=== PATIENT | male | born 1980 | race American Indian/Alaskan Native ===

== ENCOUNTER 2019-09-06 06:51 | Emergency (ER) | payer SELFPAY ==
[2019-09-06 06:58] VITALS: BP 142/94
--- NOTE | 2019-09-06 10:08 | Emergency Department Report ---
ED Lower Extremity HPI - General Chief Complaint: Fever Stated Complaint: FEVER LT LEG SWELLING Time Seen by Provider: 09/06/19 09:53 Source: patient Mode of arrival: Ambulatory Limitations: No Limitations - History of Present Illness Initial Comments: Mr. Michael is a 39-year-old -[place] male who comes to the ER today complaining of left knee pain. He states that after working out yesterday his knee began to swell. He states that during some stretching he felt a popping. He then endorses later in the night waking up with pain and what he said was chills. Patient is afebrile on exam. On provider exam his heart rate is 90. He does have an effusion to his left knee. Patient was ambulatory to the emergency room. He denies any other injury. - Related Data Allergies Allergy/AdvReac Type Severity Reaction Status Date / Time Penicillins Allergy Unknown Verified 09/06/19 06:53 ED Review of Systems ROS: Stated complaint: FEVER LT LEG SWELLING Other details as noted in HPI Comment: All other systems reviewed and negative ED Past Medical Hx - Past Medical History Previous Medical History?: No - Surgical History Past Surgical History?: Yes Additional Surgical History: right achilles - Family History Family history: no significant - Social History Smoking Status: Never Smoker Substance Use Type: Alcohol ED Physical Exam - General Limitations: No Limitations General appearance: alert, in no apparent distress - Head Head exam: Present: atraumatic, normocephalic - Eye Eye exam: Present: normal appearance - ENT ENT exam: Present: mucous membranes moist - Neck Neck exam: Present: normal inspection - Respiratory Respiratory exam: Present: normal lung sounds bilaterally. Absent: respiratory distress - Cardiovascular Cardiovascular Exam: Present: regular rate, normal rhythm. Absent: systolic murmur, diastolic murmur, rubs, gallop - GI/Abdominal GI/Abdominal exam: Present: soft, normal bowel sounds - Rectal Rectal exam: Present: deferred - Extremities Exam Extremities exam: Present: normal inspection - Expanded Lower Extremity Exam Left Hip exam: Present: normal inspection Upper Leg exam: Present: normal inspection Knee exam: Present: tenderness, swelling, effusion, full knee extension. Absent: abrasion, laceration, ecchymosis, deformity, crepidus, dislocation, erythema, pain w/ pronation/supination, posterior draw sign, pain/laxity with valgus, pain/laxity with varus Lower Leg exam: Present: normal inspection - Back Exam Back exam: Present: normal inspection - Neurological Exam Neurological exam: Present: alert, oriented X3 - Psychiatric Psychiatric exam: Present: normal affect, normal mood - Skin Skin exam: Present: warm, dry, intact, normal color. Absent: rash ED Course Vital Signs 09/06/19 06:56 Temperature 98.8 F Pulse Rate 105 H Respiratory 16 Rate Blood Pressure 142/94 O2 Sat by Pulse 98 Oximetry ED Lower Extremity MDM - Radiology Data Radiology results: report reviewed, image reviewed - Medical Decision Making MEDIAL SUPERIOR EFFUSION OF KNEE ON EXAM NO TENDERNESS OVER MENISCUS DISTAL PULSES PLUS 2 XRAY NOTED KNEE IMMOB/CRUTCHES DC HOME WITH ORTHO FOLLOW UP TO BE SURE EFFUSION RESOLVED PT VERBALIZES UNDERSTANDING OF PLAN OF CARE Vital Signs 09/06/19 06:56 Temperature 98.8 F Pulse Rate 105 H Respiratory 16 Rate Blood Pressure 142/94 O2 Sat by Pulse 98 Oximetry - Differential Diagnosis KNEE EFFUSION RO MENISCUS INJURY Critical care attestation.: If time is entered above; I have spent that time in minutes in the direct care of this critically ill patient, excluding procedure time. ED Disposition Clinical Impression: Knee effusion, left Disposition: DC-01 TO HOME OR SELFCARE Is pt being admited?: No Does the pt Need Aspirin: No Condition: Stable Instructions: Knee Effusion (ED) Additional Instructions: ELEVATE WARM COMPRESSES IMMOBILZIER/CRUTCHES FOLLOW UP WITH ORTHO IN 48H FOR RECHECK REFERRAL BEFORE MOTRIN OR TYLENOL FOR PAIN OR FEVER Referrals: TWYLA KIMBROUGH MD [Staff Physician] - 3-5 Days Time of Disposition: 11:08
--- NOTE | 2019-09-06 10:55 | XRay Report ---
Left knee-3 views INDICATION: knee pain and swelling post working out. COMPARISON: None. IMPRESSION: No acute osseous abnormality or malalignment. Small suprapatellar effusion. Moderate tr icompartmental DJD. Signer Name: Rashaad Bragg MD Signed: 09/06/2019 10:51 AM Workstation Name: [id number]
== END 2019-09-06 11:32 | disposition home or self-care (01) ==
LOC: ED 06:51
DX: M25.462 Effusion, left knee (principal); Z88.0 Allergy status to penicillin

== ENCOUNTER 2021-05-21 19:16 | Emergency (ER) | payer BC ==
[2021-05-21 19:23] VITALS: BP 144/94
[2021-05-21 19:50] LABS: Basophils % (Auto) 0.7 % (0.0-1.8); Eosinophils # (Auto) 0.2 K/mm3 (0.0-0.4); Eosinophils % (Auto) 2.8 % (0.0-4.3); Hematocrit 43.8 % (35.5-45.6); Hemoglobin 14.8 gm/dl (11.8-15.2); Lymphocytes # (Auto) 1.2 K/mm3 (1.2-5.4); Lymphocytes % (Auto) 20.2 % (13.4-35.0); Mean Corpuscular HGB Conc 34 % (32-34); Mean Corpuscular Volume 89 fl (84-94); Monocytes # (Auto) 0.6 K/mm3 (0.0-0.8); Monocytes % (Auto) 10.5 % (0.0-7.3); Platelet Count 236 K/mm3 (140-440); Red Blood Count 4.95 M/mm3 (3.65-5.03); Red Cell Distribution Width 13.8 % (13.2-15.2)
--- NOTE | 2021-05-21 19:50 | XRay Report ---
CHEST 2 VIEWS INDICATION / CLINICAL INFORMATION: Chest Pain. COMPARISON: None available. FINDINGS: SUPPORT DEVICES: None. HEART / MEDIASTINUM: No significant abnormality. LUNGS / PLEURA: No significant pulmonary or pleural abnormality. No pneumothorax. ADDITIONAL FINDINGS: No significant additional findings. IMPRESSION: 1. No acute findings. Signer Name: Chaitanya Medrano MD Signed: 05/21/2021 7:46 PM Workstation Name: [id number]
[2021-05-21 20:12] LABS: Alanine Aminotransferase 24 units/L (7-56); Albumin 4.3 g/dL (3.9-5); BUN/Creatinine Ratio 11; Blood Urea Nitrogen 12 mg/dL (9-20); Calcium 8.9 mg/dL (8.4-10.2); Hemolysis Index 26
--- NOTE | 2021-05-21 21:26 | Emergency Department Report ---
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 Ports no hemoptysis no hematemesis hematochezia, no fever, chills, sweats. No palpitations. No coryza. Reports no known contact with coronavirus. No asthma reports no smoking history MD Complaint: chest pain -: Gradual Pain Location: left chest Pain Radiation: none Consistency: constant Improves With: nothing Other Symptoms: cough. denies: acid taste in mouth, leg swelling Treatments Prior to Arrival: none - Related Data Previous Rx's Medication Instructions Recorded Last Taken Type Ketorolac [Toradol] 10 mg PO Q6H PRN #10 tablet 05/21/21 Unknown Rx Allergies Allergy/AdvReac Type Severity Reaction Status Date / Time Penicillins Allergy Unknown Verified 09/06/19 06:53 Heart Score - HEART Score History: Slightly suspicious EKG: Normal Age: < 45 Risk factors: 1-2 risk factors Troponin: < normal limit HEART Score: 1 - EKG Read Time Time EKG Completed: 20:05 EKG Read Time: 20:12 ED Review of Systems ROS: Stated complaint: LEFT CHEST PAIN Other details as noted in HPI Comment: All other systems reviewed and negative ED Past Medical Hx - Past Medical History Previous Medical History?: Yes - Surgical History Past Surgical History?: Yes Additional Surgical History: right achilles - Social History Smoking Status: Never Smoker Substance Use Type: Alcohol - Medications Home Medications: Home Medications Medication Instructions Recorded Confirmed Last Taken Type Ketorolac [Toradol] 10 mg PO Q6H PRN #10 tablet 05/21/21 Unknown Rx ED Physical Exam - General Limitations: No Limitations General appearance: alert, in no apparent distress - Head Head exam: Present: atraumatic, normocephalic - Eye Eye exam: Present: normal appearance - ENT ENT exam: Present: mucous membranes moist - Neck Neck exam: Present: normal inspection - Respiratory Respiratory exam: Present: normal lung sounds bilaterally. Absent: respiratory distress, wheezes, rales, rhonchi, chest wall tenderness - Cardiovascular Cardiovascular Exam: Present: regular rate, normal rhythm. Absent: systolic murmur, diastolic murmur, rubs, gallop - GI/Abdominal GI/Abdominal exam: Present: soft, normal bowel sounds - Rectal Rectal exam: Present: deferred - Extremities Exam Extremities exam: Present: normal inspection - Back Exam Back exam: Present: normal inspection - Neurological Exam Neurological exam: Present: alert, oriented X3 - Psychiatric Psychiatric exam: Present: normal affect, normal mood - Skin Skin exam: Present: warm, dry, intact, normal color. Absent: rash ED Course Vital Signs 05/21/21 19:21 Temperature 98.2 F Pulse Rate 103 H Respiratory 16 Rate Blood Pressure 144/94 [Left] O2 Sat by Pulse 97 Oximetry HAMMAD score - Hammad Score Age > 65: (0) No Aspirin use within the Past 7 Days: (0) No 3 or more CAD Risk Factors: (0) No 2 or more Angina events in past 24 hrs: (0) No Known CAD with more than 50% Stenosis: (0) No Elevated Cardiac Markers: (0) No ST Deviation Greater than 0.5mm: (0) No HAMMAD Score: 0 ED Medical Decision Making - Lab Data Result diagrams: 05/21/21 19:32 05/21/21 19:32 - Radiology Data Radiology results: report reviewed [address] [address] XRay Report Signed Patient: CAMILLE ACEVEDO MR#: [id number] : 1980 Acct:[id number] Age/Sex: 41 / M ADM Date: 05/21/21 Loc: ED Attending Dr: Ordering Physician: ED MD AZUL Date of Service: 05/21/21 Procedure(s): XR chest routine 2V Accession Number(s): [id number] cc: ED MD AZUL Fluoro Time In Minutes: CHEST 2 VIEWS INDICATION / CLINICAL INFORMATION: Chest Pain. COMPARISON: None available. FINDINGS: SUPPORT DEVICES: None. HEART / MEDIASTINUM: No significant abnormality. LUNGS / PLEURA: No significant pulmonary or pleural abnormality. No pneumothorax. ADDITIONAL FINDINGS: No significant additional findings. IMPRESSION: 1. No acute findings. Signer Name: Chaitanya Medrano MD Signed: 05/21/2021 7:46 PM Workstation Name: [id number] Transcribed By: LEIDA Dictated By: Chaitanya Medrano MD Electronically Authenticated By: Chaitanya Medrano MD Signed Date/Time: 05/21/211945 DD/ 44 TD/TT: - Medical Decision Making This patient presents with chest pain that is very unlikely angina or acute coronary syndrome. The emergency department evaluation has not identified any cause for suspicion that this chest pain has a cardiac etiology. Based on their history, EKG (which showed no evidence of ischemia or infarction) and imaging, in addition to the patient's physical exam, I see no evidence at this time for a malignant etiology for the patient's chest pain. There is no acute evidence for pulmonary embolus, acute myocardial infarction, pneumothorax, Boerhaeve syndrome, cardiac tamponade, thoracic artery dissection, or any other emergent cardiac, pulmonary or aortic pathology. Given the low pre-test probability for cardiac etiology of chest pain and the absence of any sign of ischemia or infarction, discharge for outpatient follow-up and further evaluation is reasonable. I have explained to the patient that even though a cardiac problem is very unlikely, follow-up and further testing is required to reduce further the already small uncertainty that exists. Other life-threatening diagnoses have been considered. The patient understands the need to return immediately if their symptoms worsen or they develop any new symptoms, and not to engage in any significant exertional activity until follow-up is obtained. Critical care attestation.: If time is entered above; I have spent that time in minutes in the direct care of this critically ill patient, excluding procedure time. ED Disposition Clinical Impression: Chest pain Disposition: HOME / SELF CARE / HOMELESS Is pt being admited?: No Does the pt Need Aspirin: No Condition: Stable Instructions: Nonspecific Chest Pain, Adult, Chest Wall Pain, [id number] Prescriptions: Ketorolac [Toradol] 10 mg PO Q6H PRN #10 tablet PRN Reason: Pain Referrals: [facility] [Provider Group] - 3-5 Days YOLETTE CAMPBELL MD [Staff Physician] - 3-5 Days
--- NOTE | 2021-05-22 11:58 | Electrocardiograph Report ---
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
== END 2021-05-21 22:35 | disposition home or self-care (01) ==
LOC: ED 19:16
DX: R07.9 Chest pain, unspecified (principal); Z88.0 Allergy status to penicillin
CPT/HCPCS: 36415; 71046; 80053; 84484; 85025; 93005